=== PATIENT | female | born 2000 | race African-American/Black ===

== ENCOUNTER 2019-04-30 10:23 | Emergency (ER) | payer OTHER ==
--- NOTE | 2019-04-30 12:03 | ER Document Report ---
ED Medical Screen (RME) - General Chief Complaint: Vaginal Pain Stated Complaint: VAGINAL DISCOMFORT Time Seen by Provider: 04/30/19 11:57 TRAVEL OUTSIDE OF THE [place] IN LAST 30 DAYS: No - HPI Notes: 04/30/19 12:02 19-year-old female presents the emergency room for complaints of vaginal pain and discomfort, reports that there is a bump inside of her vaginal lip that has a burning sensation. Patient states she was last sexually active approximately 2 months ago. 1 para 1 last menstrual period was 03/30/2018. Patient called her primary care provider and they advised her to go to the emergency room for further evaluation. Denies any fevers or chills. Patient states she does have pain with urination, which she thinks is related to the bump. I have greeted and performed a rapid initial assessment of this patient. A comprehensive ED assessment and evaluation of the patient, analysis of test results and completion of the medical decision making process will be conducted by additional ED providers. PHYSICAL EXAMINATION: GENERAL: Well-appearing, well-nourished and in no acute distress. HEAD: Atraumatic, normocephalic. NECK: Normal range of motion LUNGS: No respiratory distress Musculoskeletal: Normal range of motion : deferred NEUROLOGICAL: Normal speech, normal gait. PSYCH: Normal mood, normal affect. SKIN: Warm, Dry, normal turgor, no rashes or lesions noted. - Related Data Allergies/Adverse Reactions: No Known Allergies Allergy (Verified 04/30/19 11:57) Past Medical History - Social History Chew tobacco use (# tins/day): No Frequency of alcohol use: None Drug Abuse: None Physical Exam - Vital signs Vitals: Temp Pulse Resp BP Pulse Ox 98.3 F 83 15 134/72 H 100 04/30/19 10:28 04/30/19 10:28 04/30/19 10:28 04/30/19 10:28 04/30/19 10:28 Course - Vital Signs Vital signs: Temp Pulse Resp BP Pulse Ox 98.3 F 83 15 134/72 H 100 04/30/19 11:57 04/30/19 10:28 04/30/19 11:57 04/30/19 10:28 04/30/19 11:57
[2019-04-30 13:01] LABS: APPEARANCE,URINE CLEAR; BILIRUBIN,URINE NEGATIVE (NEGATIVE); COLOR,URINE YELLOW; GLUCOSE, URINE NEGATIVE (NEGATIVE); KETONES,URINE NEGATIVE (NEGATIVE); LEUKOCYTE ESTERASE,URINE NEGATIVE (NEGATIVE); NITRITE,URINE NEGATIVE (NEGATIVE); PROTEIN,URINE NEGATIVE (NEGATIVE); URINE SPECIFIC GRAVITY 1.024; UROBILINOGEN,URINE NEGATIVE mg/dL (<2.0)
--- NOTE | 2019-04-30 16:26 | ER Document Report ---
ED GI/ - General Chief Complaint: Vaginal Pain Stated Complaint: VAGINAL DISCOMFORT Time Seen by Provider: 04/30/19 11:57 Notes: Patient is a 19-year-old female who presents to the emergency department with a chief complaint of vaginal pain. Patient reports last night she was wiping after using the restroom and noticed a tiny bump inside her left labia majora. Patient reports there is a burning sensation around the site. Patient denies drainage. Patient reports that she does not have a history of any sexually transmitted diseases. Patient reports she is concerned for possible genital warts. Patient reports she was last sexually active 2 months ago. Patient denies vaginal bleeding or discharge. Patient reports her last menstrual cycle was April 12. Patient does have an IUD. Patient denies pelvic pain or abdominal pain. Patient denies fever, nausea, vomiting or diarrhea. TRAVEL OUTSIDE OF THE [place] IN LAST 30 DAYS: No - Related Data Allergies/Adverse Reactions: No Known Allergies Allergy (Verified 04/30/19 11:57) Past Medical History - General Information source: Patient - Social History Smoking Status: Never Smoker Chew tobacco use (# tins/day): No Frequency of alcohol use: None Drug Abuse: None Lives with: Family Family History: None Patient has suicidal ideation: No Patient has homicidal ideation: No - Past Medical History Cardiac Medical History: Reports: None Pulmonary Medical History: Reports: None EENT Medical History: Reports: None Neurological Medical History: Reports: None Endocrine Medical History: Reports: None Renal/ Medical History: Reports: None Malignancy Medical History: Reports: None GI Medical History: Reports: None Musculoskeletal Medical History: Reports None Skin Medical History: Reports None Psychiatric Medical History: Reports: None Traumatic Medical History: Reports: None Infectious Medical History: Reports: None Surgical Hx: Negative Past Surgical History: Reports: Hx Tonsillectomy Review of Systems - Review of Systems Constitutional: No symptoms reported EENT: No symptoms reported Cardiovascular: No symptoms reported Respiratory: No symptoms reported Gastrointestinal: No symptoms reported Genitourinary: No symptoms reported Female Genitourinary: See HPI Musculoskeletal: No symptoms reported Skin: No symptoms reported Hematologic/Lymphatic: No symptoms reported Neurological/Psychological: No symptoms reported Physical Exam - Vital signs Vitals: Temp Pulse Resp BP Pulse Ox 98.3 F 83 15 134/72 H 100 04/30/19 10:28 04/30/19 10:28 04/30/19 10:28 04/30/19 10:28 04/30/19 10:28 Interpretation: Normal - Notes Notes: GENERAL: Well-appearing, well-nourished and in no acute distress. HEAD: Atraumatic, normocephalic. EYES: Pupils equal round and reactive to light, extraocular movements intact, sclera anicteric, conjunctiva are normal. ENT: TMs normal, nares patent, oropharynx clear without exudates. Moist mucous membranes. NECK: Normal range of motion, supple without lymphadenopathy or JVD. LUNGS: Breath sounds clear to auscultation bilaterally and equal. No wheezes rales or rhonchi. HEART: Regular rate and rhythm without murmurs, rubs or gallops. ABDOMEN: Soft, nontender, normoactive bowel sounds. No guarding, no rebound. No masses appreciated. BACK: No cervical, thoracic, lumbar midline tenderness. No saddle anesthesia, normal distal neurovascular exam. GENITOURINARY: Deferred. EXTREMITIES: Normal range of motion, no pitting or edema. No clubbing or cyanosis. NEUROLOGICAL: Cranial nerves II through XII grossly intact. Normal speech, normal gait. PSYCH: Normal mood, normal affect. SKIN: Warm, Dry, normal turgor, no rashes or lesions noted. Course - Vital Signs Vital signs: Temp Pulse Resp BP Pulse Ox 98.2 F 79 12 114/70 100 04/30/19 17:27 04/30/19 17:27 04/30/19 17:27 04/30/19 17:27 04/30/19 17:27 Procedures - Pelvic Exam Pelvic exam Time completed: 16:15 Cultures obtained: Yes Wet prep obtained: Yes Witnessed by: Sylvia ROBERTS Notes: 04/30/19 16:23 Patient's external genitalia did did not reveal any edema, erythema. Patient does have what appears to be a small skin tag noted to the left labia majora, no open lesions or sores. Patient tolerated the insertion of the speculum well. I was able to visualize the cervix and the strings of an IUD. Specimens were obtained. Discharge - Discharge Clinical Impression: Pelvic pain Condition: Stable Disposition: HOME, SELF-CARE Additional Instructions: *Today you are seen in the emergency department for vaginal pain. *Your pelvic examination did show that you have a bacterial vaginosis. We have prescribed you Flagyl which you will take twice a day for the next week. It is unsure what is causing the skin tag on the outside of your vagina. We do not routinely check for HPV here here in the emergency department. Your TRAVEL AGENT cou ld help you with this. I would call them tomorrow to schedule an appointment. Please return to the emergency department if you have any worsening of vaginal pain, drainage, increasing swelling or any new or worsening symptoms. VAGINOSIS, BACTERIAL: Your exam shows you have bacterial vaginosis. This condition is due to an overgrowth of bacteria in the vagina. Symptoms may include vaginal itching or pain, a smelly discharge, and sometimes burning with urination. Normally this is not transmitted by sexual contact. Vaginosis can be treated with oral or topical antibiotics. Metronidazole (Flagyl) pills are usually effective. Topical vaginal creams include Cleocin and Metro-Gel. You should avoid sexual contact until your symptoms are all better. Call the doctor if you develop pelvic pain, fever, or problems with urination, or if you don't improve as expected. MICONAZOLE: Several brands of miconazole are available without prescription. These medicines are safe and effective for kaiden (yeast) vaginal infections. You can select suppositories or cream. Brands include Monistat, Gyne-Lotrimin, and Mycelex. Don't use miconazole if you're , unless you discuss it with your doctor. If you develop rash, irritation, fever, increased discharge, or abdominal pain, stop using the medicine and see your doctor. FOLLOW-UP CARE: If you have been referred to a physician for follow-up care, call the physicians office for an appointment as you were instructed or within the next two days. If you experience worsening or a significant change in your symptoms, notify the physician immediately or return to the Emergency Department at any time for re-evaluation. Prescriptions: Metronidazole [Flagyl 500 mg Tablet] 500 mg PO BID #14 tablet
[2019-04-30 16:30] LABS: T.VAGINALIS (WET MOUNT) NO TRICHOMONAS SEEN; WBCS (WET MOUNT) 1+ WBCS SEEN; YEAST (WET MOUNT) NO YEAST SEEN
[2019-04-30 16:31] LABS: BACTERIA (WET MOUNT) 3+ BACTERIA SEEN; EPITHELIALS (WET MOUNT) 3+ EPITHELIALS SEEN
[2019-04-30 17:28] VITALS: BP 114/70
[2019-04-30 17:58] LABS: CHLAM PCR NOT DETECTED (NOT DETECT)
== END 2019-04-30 17:30 | disposition home or self-care (01) ==
LOC: ER 10:23
DX: R10.2 Pelvic and perineal pain (principal); Z97.5 Presence of (intrauterine) contraceptive device
CPT/HCPCS: 81001; 81025; 87210; 87491; 87591; 99283